=== PATIENT | male | born 1985 | race Caucasian/White ===

== ENCOUNTER 2021-07-09 08:19 | Emergency (ER) | payer MEDICAID, SELFPAY ==
[2021-07-09 08:28] VITALS: BP 151/89; PULSE 120; RESP 18; TEMP 36.7; O2SAT 95
--- NOTE | 2021-07-09 08:45 | RT.EKG_ITS ---
APPROVED REPORT Exam: Resting ECG Reason for Exam: chest pain Patient Location: E HR:101 bpm ECG Measurements Heart Rate 101 AXIS CA 157 P 67 QRSd 102 QRS 58 QT 343 T 38 QTc [address] elev, probable normal early repol pattern. No comparison avaiable
[2021-07-09 09:10] VITALS: O2SAT 95
[2021-07-09 09:18] LABS: Source Nasal/Nares
[2021-07-09] MEDS: Acetaminophen 500 MG TAB 1000 MG PO (09:23)
[2021-07-09] MEDS: Ketorolac 15 MG/ML VIAL IVP (09:24)
[2021-07-09] MEDS: Normal Saline 1,000 ML 1000 ML IV (09:24)
[2021-07-09 09:31] LABS: Abs Immature Grans 0.08 10^3/uL (0.0-0.06); Absolute Basophil Count 0.09 10^3/uL (0.0-0.2); Absolute Eosinophil Count 0.15 10^3/uL (0.0-0.7); Absolute Lymphocyte Count 2.28 10^3/uL (1.2-3.4); Absolute Monocyte Count 0.65 10^3/uL (0.1-0.8); Absolute Neutrophil Count 2.06 10^3/uL (1.2-6.7); Basophils % 1.7; Eosinophils % 2.8; HCT 44.8 % (40.0-50.0); HGB 15.2 g/dL (13.5-17.5); Immature Grans % 1.5; Lymphocytes % 42.9; MCH 33.9 pg (27.0-33.0); MCHC 33.9 % (32.0-36.0); MCV 99.8 fL (80-95); MPV 9.9 fL (8.0-11.0); Monocytes % 12.2; Neutrophils % 38.9; Nucleated RBC 0 %; Platelet Count 325 10^3/uL (130-400); RBC 4.49 10^6/uL (4.36-5.78); RDW-SD 44.4 fL; WBC 5.31 10^3/uL (4.4-10.8)
--- NOTE | 2021-07-09 09:44 | DI.RAD_ITS ---
Exam(s) XR PORTABLE CHEST AP EXAM: XR PORTABLE CHEST AP CLINICAL HISTORY: left chest pain, cough TECHNIQUE: 2D digital imaging was performed. COMPARISON: No exams were available for comparison FINDINGS: LUNGS: Clear. No pleural abnormality seen. HEART: Normal. MEDIASTINUM: Normal. BONES: Unremarkable. IMPRESSION: No acute pulmonary findings. DATA REPOSITORY: RADIATION DOSE DELIVERED:
[2021-07-09 09:45] LABS: ALT 91 U/L (16-63); AST 55 U/L (15-37); Albumin 3.5 g/dL (3.4-5.0); Alkaline Phosphatase 72 U/L (46-116); Anion Gap 10.6 mmol/L (3-11); BUN 8 mg/dL (7-18); Bilirubin, Total 0.2 mg/dL (0.2-1.0); CO2 25.4 mmol/L (21.0-32.0); CREATININE 0.7 mg/dL (0.70-1.30); Calcium 8.2 mg/dL (8.5-10.1); Chloride 108 mmol/L (98-107); Glucose 134 mg/dL (74-106); Potassium 3.9 mmol/L (3.5-5.1); Sodium 144 mmol/L (136-145); Total Protein 7.2 g/dL (6.4-8.2)
[2021-07-09 10:11] LABS: COVID-19 PCR Negative (Negative)
[2021-07-09 10:51] LABS: D-Dimer 663 ng/mlFEU (<500)
--- NOTE | 2021-07-09 11:00 | DI.CT_ITS ---
Exam(s) CT CHEST PE CTA EXAM: CT CHEST PE CTA CLINICAL HISTORY: left chest pain. TECHNIQUE: Imaging Protocol: Axial CT angiography was performed with multi-slice acquisition and mu lti-planar and/or 3D reconstructions. CONTRAST MATERIAL: Intravenous: Omnipaque 350 Contrast volume:100 cc COMPARISON: CR XR PORTABLE CHEST AP from 07/09/2021 CR XR PORTABLE CHEST AP from 07/09/2021 FINDINGS: Pulmonary Arteries: No evidence of filling defect to suggest pulmonary emboli. Tracheobronchial tree: Patent where visualized. Mediastinum and Sherrill: No dominant adenopathy or fluid collection. Pulmonary parenchyma: Mild respiratory motion. No consolidation or dominant measurable mass. Linear atelectasis or scarring in both lower lobes, greater on the left. Pleura: No effusion or pneumothorax. Heart: The heart is not dilated. No coronary artery calcifications are seen. Aorta: Thoracic aorta non-dilated. Upper abdomen: Severe fatty infiltration of the liver. Bones: Normal. Tubes, Catheters, and Lines: None IMPRESSION: No evidence of pulmonary embolism or other acute abnormality.. RADIATION DOSE DELIVERED: 524.29mGy.cm Total DLP DATA REPOSITORY: All CT scans at this facility are submitted to the National Radiology Data Registry (NRDR) Dose Index Registry (DIR) with the [employer] (ACR). RADIATION OPTIMIZATION: All CT scans at this facility use at least one of these dose optimization te chniques: automated exposure control; mA and/or kV adjustment per patient size (includes targeted exa ms where dose is matched to clinical indication); or iterative reconstruction.
--- NOTE | 2021-07-09 11:19 | ED.GENADUL_ITS ---
Discharge Plan Disposition Patient Disposition: HOME Condition: Good Discharge Details Clinical Impression: Pleurisy, Bronchitis Primary Care Provider: Ned Norman ED Provider: Dasha Vaughan Home Meds and New Rx's Prescriptions: New prednisone 20 mg tablet 40 mg PO DAILY Qty: 10 RF: 0 No Action fluoxetine [Prozac] 40 mg Capsule 40 mg PO DAILY RF: 0 albuterol 90 mcg/actuation Aerosol 90 mcg INHALATION PRN PRNRF: 0 Discharge Instructions Instructions: Pleurisy (ED), Acute Bronchitis (ED) Additional Instructions: Take prednisone as prescribed Use your inhaler every 4-6 hours Take Tylenol as needed for pain Please return earlier should you have new or worsening complaints Robitussin as needed for cough Discharge Data Discharge Date/Time-TO BE ENTERED AT DEPARTURE: 07/09/21 12:01 Medical Decision Making Patient appears well, he has reproducible left lateral chest wall tenderness, he has normal lab and x-ray, however he came in with tachycardia, heart rate 120 with pleuritic chest pain did order D-dimer which was mildly elevated at 6C, he did consent to CTA of the chest that showed acute abnormality He is feeling mild symptomatic improvement I will treat him for pleurisy conservatively given his asthma history, short course of prednisone He also uses inhaler every 4-6 hours, smoking cessation discussed Return precautions discussed and patient expressed understanding, EKG does not show significant acute abnormality and at this pain has been present for 1 week and is pleuritic, very low suspicion for cardiac etiology of patient's complaint CTA does not show pulmonary embolism, no evidence of pneumonia, clinical suspicion for bronchitis We will treat conservatively Will increase hydration Robitussin as needed for cough Discharged home in stable condition with stable vital Repeat heart rate 89 at time of discharge home, oxygenation 95% on room air Medical Records Medical records reviewed: Yes I reviewed the patient's medical records. Lab Data Lab results reviewed: Yes I reviewed the patient's lab results. HPI General Mode of arrival: ambulatory . Date/Time Provider Initiated Documentation: 07/09/21 08:39 . Limitations to Documentation: no limitations . Information obtained by: patient . HPI Narrative: 35-year-old gentleman with history of schizophrenia presents with left-sided chest pain that is pleuritic in nature. He states he been sick with upper respiratory symptoms for 2 weeks. He has a history of asthma. He is been using his inhaler with relief in symptoms. He denies hemoptysis. He denies any fever or chills. He states that most of the people in the home where he resides are sick with similar symptoms. He denies any calf pain or swelling. He denies any recent flights, surgeries, long drives. He denies any prior history of coagulopathy. He states that his cough has been dry. Has symptoms are largely exacerbated with breathing. He denies any shortness of breath. He denies any history of coronary artery disease. He has pain with deep breathing only. He denies any nausea or vomiting. He denies any myalgias. Related Data Home Medications Medication Instructions Recorded Confirmed albuterol 90 mcg INHALATION PRN PRN 07/09/21 07/09/21 fluoxetine [Prozac] 40 mg PO DAILY 07/09/21 07/09/21 prednisone 40 mg PO DAILY #10 tab 07/09/21 Previous Rx's Medication Instructions Recorded prednisone 40 mg PO DAILY #10 tab 07/09/21 Allergies Allergy/AdvReac Type Severity Reaction Status Date / Time fire ant Allergy Skin Rash Unverified 07/09/21 08:31 pollen extracts Allergy Unverified 07/09/21 08:31 General Stated Complaint: RespSymp MAYI: 3 Review of Systems All systems reviewed & are unremarkable except as noted in HPI and below PFSH Medical History (Updated 07/09/21 @ 11:57 by AVNI Norris) Asthma Depression Schizophrenia Surgical History (Updated 07/09/21 @ 08:34 by Nehal Herring) History of facial surgery Social History Smoking/Tobacco Use Status: Current every day Tobacco Type: e-cigarettes Smoking risk assessment performed?: Yes Alcohol Intake: current Alcohol Intake frequency: 3 or more drinks per day Alcohol type: beer Drug use: Occasionally Substance use type: marijuana Do you feel safe at home: Yes Do you feel safe in your relationship?: Yes Exam Const General: cooperative, comfortable and no acute distress Eyes Sclera: sclerae normal Chest Chest: normal inspection of the chest Other: Tenderness to left lateral rib cage, no visible rashes or lesions Resp Effort & Inspection: normal respiratory effort Auscultation: clear to auscultation bilaterally Cardio Rate: regular rate Rhythm: regular rhythm GI Other: No abdominal tenderness, no CVA tenderness Skin General skin exam: no rashes or lesions noted Neuro General: patient alert and patient oriented x3 Extrem Other: Distal pulses intact, no calf swelling or tenderness Course Vital Signs Vital signs: Vital Signs Temperature 36.7 C 07/09/21 08:28 Pulse 120 H 07/09/21 08:28 Respiratory Rate 18 07/09/21 08:28 Blood Pressure 151/89 H 07/09/21 08:28 Pulse Oximetry 95 07/09/21 08:28 Temperature 36.7 C 07/09/21 08:28 Temperature Source Skin 07/09/21 08:28 Pulse 120 H 07/09/21 08:28 Respiratory Rate 18 07/09/21 08:28 Respiratory Effort 07/09/21 09:34 Respiratory Depth Normal 07/09/21 09:34 Blood Pressure 151/89 H 07/09/21 08:28 Blood Pressure Position Sitting 07/09/21 08:28 Pulse Oximetry 95 07/09/21 09:10 Oxygen Delivery Method Room Air 07/09/21 08:28 Oxygen Flow Rate 0 07/09/21 08:28 Pain Level 8 07/09/21 09:24 Lab/Test Results Lab/Test Results: Laboratory Tests Range/Units 07/09/21 07/09/21 07/09/21 09:10 09:20 09:20 WBC (4.4-10.8) 10^3/uL 5.31 RBC (4.36-5.78) 10^6/uL 4.49 Hgb (13.5-17.5) g/dL 15.2 Hct (40.0-50.0) % 44.8 MCV (80-95) fL 99.8 H MCH (27.0-33.0) pg 33.9 H MCHC (32.0-36.0) % 33.9 RDW (11.8-14.1) % 12.0 Plt Count (130-400) 10^3/uL 325 MPV (8.0-11.0) fL 9.9 Immature Gran % 1.5 Neutrophils % 38.9 Lymphocytes % 42.9 Monocytes % 12.2 Eosinophils % 2.8 Basophils % 1.7 Nucleated RBC % % 0 Absolute Neutrophils (1.2-6.7) 10^3/uL 2.06 Absolute Lymphocytes (1.2-3.4) 10^3/uL 2.28 Absolute Monocytes (0.1-0.8) 10^3/uL 0.65 Absolute Eosinophils (0.0-0.7) 10^3/uL 0.15 Absolute Basophils (0.0-0.2) 10^3/uL 0.09 D-Dimer (<500) ng/mlFEU Sodium (136-145) mmol/L 144 Potassium (3.5-5.1) mmol/L 3.9 Chloride (98-107) mmol/L 108 H Carbon Dioxide (21.0-32.0) mmol/L 25.4 Anion Gap (3-11) mmol/L 10.6 BUN (7-18) mg/dL 8 Creatinine (0.70-1.30) mg/dL 0.7 Estimated GFR/1.73 m2 (mL/min/1.73m2) >= 60.00 Glucose (74-106) mg/dL 134 H Calcium (8.5-10.1) mg/dL 8.2 L Total Bilirubin (0.2-1.0) mg/dL 0.2 AST (15-37) U/L 55 H ALT (16-63) U/L 91 H Alkaline Phosphatase (46-116) U/L 72 Total Protein (6.4-8.2) g/dL 7.2 Albumin (3.4-5.0) g/dL 3.5 COVID-19 Source Nasal/Nares SARS-CoV-2 (PCR) (Negative) Negative Range/Units 07/09/21 09:27 WBC (4.4-10.8) 10^3/uL RBC (4.36-5.78) 10^6/uL Hgb (13.5-17.5) g/dL Hct (40.0-50.0) % MCV (80-95) fL MCH (27.0-33.0) pg MCHC (32.0-36.0) % RDW (11.8-14.1) % Plt Count (130-400) 10^3/uL MPV (8.0-11.0) fL Immature Gran % Neutrophils % Lymphocytes % Monocytes % Eosinophils % Basophils % Nucleated RBC % % Absolute Neutrophils (1.2-6.7) 10^3/uL Absolute Lymphocytes (1.2-3.4) 10^3/uL Absolute Monocytes (0.1-0.8) 10^3/uL Absolute Eosinophils (0.0-0.7) 10^3/uL Absolute Basophils (0.0-0.2) 10^3/uL D-Dimer (<500) ng/mlFEU 663 H Sodium (136-145) mmol/L Potassium (3.5-5.1) mmol/L Chloride (98-107) mmol/L Carbon Dioxide (21.0-32.0) mmol/L Anion Gap (3-11) mmol/L BUN (7-18) mg/dL Creatinine (0.70-1.30) mg/dL Estimated GFR/1.73 m2 (mL/min/1.73m2) Glucose (74-106) mg/dL Calcium (8.5-10.1) mg/dL Total Bilirubin (0.2-1.0) mg/dL AST (15-37) U/L ALT (16-63) U/L Alkaline Phosphatase (46-116) U/L Total Protein (6.4-8.2) g/dL Albumin (3.4-5.0) g/dL COVID-19 Source SARS-CoV-2 (PCR) (Negative)
[2021-07-09] MEDS: Omnipaque 350 MG/ML 100 ML BTL IJ (11:23)
== END 2021-07-09 12:01 | disposition home or self-care (01) ==
PROVIDERS: Emergency Provider Physician Assistant; PCP Nurse Practitioner
DX: R09.1 Pleurisy (principal); J44.0 Chronic obstructive pulmonary disease with (acute) lower respiratory infection; J20.9 Acute bronchitis, unspecified; J45.909 Unspecified asthma, uncomplicated; R00.0 Tachycardia, unspecified; R79.1 Abnormal coagulation profile; F17.210 Nicotine dependence, cigarettes, uncomplicated; Z20.822 Contact with and (suspected) exposure to COVID-19; Z03.818 Encounter for observation for suspected exposure to other biological agents ruled out
CPT/HCPCS: 36415; 71275; 80053; 87635; 93005; 96361; 96374; 99285; 71045; 85025; 85379; 93010; J1885; J3490